=== PATIENT | female | born 1970 | race Caucasian/White ===

== ENCOUNTER → 2016-12-18 | Outpatient (CLI) | payer OTHER ==
[2016-12-18 18:36] LABS: FREE T4 1.07 NG/DL (0.76-1.46)
== END ==
LOC: M WUC 14:53
PROVIDERS: ATTEND Physician Assistant
DX: E89.0 Postprocedural hypothyroidism (principal)

== ENCOUNTER → 2017-01-28 | Outpatient (REF) | payer OTHER ==
[2017-01-31 00:06] LABS: ENDOMYSIAL ABY IgA Negative (Negative)
== END ==
LOC: M LAB REF 17:37
PROVIDERS: ATTEND Nurse Practitioner Family
DX: K90.0 Celiac disease (principal)

== ENCOUNTER → 2018-04-03 | Outpatient (CLI) | payer BC ==
[2018-04-03 16:22] LABS: THYROID STIMULATING HORMONE 0.103 uIU/ML (0.358-3.740)
[2018-04-03 16:22] LABS: FREE T4 1.13 NG/DL (0.76-1.46)
== END ==
LOC: M WUC 13:38
DX: E03.9 Hypothyroidism, unspecified (principal)
CPT/HCPCS: 84443

== ENCOUNTER → 2018-05-06 | Outpatient (REF) | payer BC ==
[2018-05-06 18:14] LABS: FERRITIN 2 NG/ML (8-252); IRON (FE) 18 UG/DL (50-170); PERCENT SATURATION 3.6 % (13.2-45.0); TOTAL IRON BINDING CAPACITY 507 UG/DL (250-450)
[2018-05-06 18:16] LABS: FOLATE > 24.0 NG/ML
== END ==
LOC: M LAB REF 16:32
DX: D64.9 Anemia, unspecified (principal)

== ENCOUNTER → 2018-05-08 | Outpatient (REF) | payer BC ==
[2018-05-08 17:08] LABS: RETICULOCYTE # 68.2 10^9/L (17-77); RETICULOCYTE % 1.6 % (0.5-1.5)
[2018-05-08 17:14] LABS: REASON FOR REVIEW OTHER; SLIDE REVIEW Report; SOURCE PERIPHERAL SMEAR
[2018-05-10 08:06] LABS: HAPTOGLOBIN 122 mg/dL (34-200)
== END ==
LOC: M LAB REF 16:41
DX: D64.9 Anemia, unspecified (principal)

== ENCOUNTER → 2018-07-07 | Outpatient (REF) | payer BC ==
[2018-07-07 17:14] LABS: PERCENT SATURATION 4.8 % (13.2-45.0)
== END ==
LOC: M LAB REF 16:35
PROVIDERS: ATTEND Nurse Practitioner Family
DX: D64.9 Anemia, unspecified (principal)

== ENCOUNTER 2018-08-11 09:38 | Day surgery (SDC) | payer BC ==
[~2018-08-11] VITALS: Ht 170.2 cm; Wt 86.6 kg
[~2018-08-11 09:38] MED LIST: CALC500T49 PO; CITA20TA4 PO; IRON325T7 PO; LEVO150T7 PO; MULT1TAB10 PO; VITA100067 PO
[2018-08-11] MEDS ORDERED: NS 1,000 ML IV ONE (10:00)
[2018-08-11] MEDS ORDERED: LIDOCAINE 2% INJ 100 MG/5 ML SDV (FOR ANES.) As Ordered ONE (11:38)
[2018-08-11] MEDS ORDERED: PROPOFOL 200 MG/20 ML VIAL As Ordered ONE (11:38)
--- NOTE | 2018-08-11 12:13 | ROOR ---
Patient Name: Sharon Merrill Procedure Date: 08/11/2018 11:26 AM Date of : 1970 Age: 47 Room: [facility] Gender: Female Note Status: Finalized Procedure: Upper GI endoscopy Indications: Iron deficiency anemia Providers: Anibal Choudhary MD Referring MD: MAGDA BAKER NP Requesting Provider: Medicines: Monitored Anesthesia Care Complications: No immediate complications. Procedure: Pre-Anesthesia Assessment: - Prior to the procedure, a History and Physical was performed, and patient medications and allergies were reviewed. The patient is competent. The risks and benefits of the procedure and the sedation options and risks were discussed with the patient. All questions were answered and informed consent was obtained. Patient identification and proposed procedure were verified by the physician, the nurse and the anesthesiologist in the procedure room. Mental Status Examination: alert and oriented. Airway Examination: normal oropharyngeal airway and neck mobility. Respiratory Examination: clear to auscultation. CV Examination: normal. Prophylactic Antibiotics: The patient does not require prophylactic antibiotics. Prior Anticoagulants: The patient has taken no previous anticoagulant or antiplatelet agents. ASA Grade Assessment: II - A patient with mild systemic disease. After reviewing the risks and benefits, the patient was deemed in satisfactory condition to undergo the procedure. The anesthesia plan was to use monitored anesthesia care (MAC). Immediately prior to administration of medications, the patient was re-assessed for adequacy to receive sedatives. The heart rate, respiratory rate, oxygen saturations, blood pressure, adequacy of pulmonary ventilation, and response to care were monitored throughout the procedure. The physical status of the patient was re-assessed after the procedure. The Endoscope was introduced through the mouth, and advanced to the second part of duodenum. The upper GI endoscopy was accomplished without difficulty. The patient tolerated the procedure well. Findings: The examined esophagus was normal. The Z-line was regular and was found 40 cm from the incisors. 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 This was characterized by ulceration and an intact staple line. Biopsies were taken with a cold forceps for histology. Verification of patient identification for the specimen was done by the physician and nurse using the patient's name, date and medical record number. Estimated blood loss was minimal. Normal mucosa was found in the gastric fundus and in the gastric body. Biopsies were taken with a cold forceps for Helicobacter pylori testing. Normal mucosa was found in the jejunum. Biopsies for histology were taken with a cold forceps for evaluation of celiac disease. Impression: - Normal esophagus. - Z-line regular, 40 cm from the incisors. 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 Biopsied. - Normal mucosa was found in the gastric fundus and in the gastric body. Biopsied. - Normal mucosa was found in the jejunum. Biopsied. Recommendation: - Patient has a contact number available for emergencies. The signs and symptoms of potential delayed complications were discussed with the patient. Return to normal activities tomorrow. Written discharge instructions were provided to the patient. - Resume previous diet. - Use Protonix (pantoprazole) 40 mg PO twice daily - to be taken in morning (1/2 hour before breakfast) and at bedtime ( atleast 3 hours after last meal) for 3 months. - Recommend an iron supplement. - Check hemoglobin and hematocrit in 3 months. - Based on the biopsy results you will receive a phone call from GI clinic in 2-3 weeks to review the pathology results AND/OR your results will be faxed to your Primary care physician. - Return to primary care physician. Anibal Choudhary MD Anibal Choudahry MD 08/11/2018 12:13:12 PM This report has been signed electronically. Number of Addenda: 0 Note Initiated On: 08/11/2018 11:26 AM Estimated Blood Loss: Estimated blood loss was minimal.
--- NOTE | 2018-08-11 12:17 | ROOR ---
Patient Name: Sharon Merrill Procedure Date: 08/11/2018 11:26 AM Date of : 1970 Age: 47 Room: [facility] Gender: Female Note Status: Finalized Procedure: Colonoscopy Indications: Iron deficiency anemia Providers: Anibal Choudhary MD Referring MD: MAGDA BAKER NP Requesting Provider: Medicines: Monitored Anesthesia Care Complications: No immediate complications. Procedure: Pre-Anesthesia Assessment: - Prior to the procedure, a History and Physical was performed, and patient medications and allergies were reviewed. The patient is competent. The risks and benefits of the procedure and the sedation options and risks were discussed with the patient. All questions were answered and informed consent was obtained. Patient identification and proposed procedure were verified by the physician, the nurse and the anesthesiologist in the procedure room. Mental Status Examination: alert and oriented. Airway Examination: normal oropharyngeal airway and neck mobility. Respiratory Examination: clear to auscultation. CV Examination: normal. Prophylactic Antibiotics: The patient does not require prophylactic antibiotics. Prior Anticoagulants: The patient has taken no previous anticoagulant or antiplatelet agents. ASA Grade Assessment: II - A patient with mild systemic disease. After reviewing the risks and benefits, the patient was deemed in satisfactory condition to undergo the procedure. The anesthesia plan was to use monitored anesthesia care (MAC). Immediately prior to administration of medications, the patient was re-assessed for adequacy to receive sedatives. The heart rate, respiratory rate, oxygen saturations, blood pressure, adequacy of pulmonary ventilation, and response to care were monitored throughout the procedure. The physical status of the patient was re-assessed after the procedure. The Colonoscope was introduced through the anus and advanced to the terminal ileum, with identification of the appendiceal orifice and IC valve. The colonoscopy was performed without difficulty. The patient tolerated the procedure well. The quality of the bowel preparation was good. The terminal ileum and the ileocecal valve were photographed. Scope insertion time was 4 minutes. Scope withdrawal time was 8 minutes. The total duration of the procedure was 12 minutes. Findings: The perianal and digital rectal examinations were normal. The terminal ileum appeared normal. Non-bleeding external and internal hemorrhoids were found during retroflexion. The hemorrhoids were small. No other significant abnormalities were identified in a careful examination of the remainder of the colon. Impression: - The examined portion of the ileum was normal. - Non-bleeding external and internal hemorrhoids. - No specimens collected. Recommendation: - Patient has a contact number available for emergencies. The signs and symptoms of potential delayed complications were discussed with the patient. Return to normal activities tomorrow. Written discharge instructions were provided to the patient. - Resume previous diet. - Continue present medications. - Await pathology results. - Repeat colonoscopy in 10 years for screening purposes. - Return to GI clinic in 10 years. - Return to primary care physician. Anibal Choudhary MD Anibal Choudhary MD 08/11/2018 12:17:06 PM This report has been signed electronically. Number of Addenda: 0 Note Initiated On: 08/11/2018 11:26 AM Estimated Blood Loss: Estimated blood loss was minimal.
[2018-08-11 12:27] VITALS: BP 131/82
== END 2018-08-11 13:00 | disposition home or self-care (01) ==
LOC: M OPP 09:38
PROVIDERS: ATTEND Internal Medicine Gastroenterology
DX: D50.9 Iron deficiency anemia, unspecified (principal); K64.8 Other hemorrhoids; Z98.84 Bariatric surgery status; E07.9 Disorder of thyroid, unspecified; I10 Essential (primary) hypertension; Z88.2 Allergy status to sulfonamides; Z79.899 Other long term (current) drug therapy

== ENCOUNTER → 2020-05-07 | Outpatient (CLI) | payer SELFPAY ==
[~2020-05-07] MED LIST changes: -CITA20TA4 PO; +CITA20TA6 PO; +FERR325T82 PO; -IRON325T7 PO
== END ==
LOC: M LABSMTC 10:58
PROVIDERS: ATTEND Pediatrics
DX: Z20.828 Contact with and (suspected) exposure to other viral communicable diseases (principal)

== ENCOUNTER → 2020-06-20 | Outpatient (REF) | payer BC ==
[2020-06-20 18:51] LABS: FREE T4 0.91 NG/DL (0.76-1.46); THYROID STIMULATING HORMONE 7.54 uIU/ML (0.358-3.740)
== END ==
LOC: M LABDRAWC 15:54
PROVIDERS: ATTEND Internal Medicine
DX: E89.0 Postprocedural hypothyroidism (principal)

== ENCOUNTER → 2020-07-14 | Outpatient (CLI) | payer SELFPAY | LOC: M LABSMTC 09:42 | PROVIDERS: ATTEND Pediatrics | DX: Z20.828 Contact with and (suspected) exposure to other viral communicable diseases (principal) ==

== ENCOUNTER → 2020-09-21 | Outpatient (REF) | payer BC ==
[2020-09-21 17:02] LABS: PERCENT SATURATION 36.7 % (13.2-45.0)
== END ==
LOC: M LAB REF 16:21
PROVIDERS: ATTEND Nurse Practitioner Adult Health
DX: Z98.84 Bariatric surgery status (principal)

== ENCOUNTER → 2020-09-24 | Outpatient (CLI) | payer BC | LOC: M LABSMTC 09:28 | PROVIDERS: ATTEND Ophthalmology | DX: Z11.59 Encounter for screening for other viral diseases (principal) ==

== ENCOUNTER → 2022-05-18 | Outpatient (REF) | payer BC ==
[2022-05-18 19:16] LABS: PERCENT SATURATION 45.3 % (13.2-45.0)
[2022-05-18 19:41] LABS: THYROGLOBULIN ANTIBODY 64.4 U/ML (<60.0); TOTAL 25(OH) VITAMIN D 28.1 NG/ML (30.0-100.0); TOTAL T3 55.9 NG/DL (60.0-181.0)
== END ==
LOC: M LAB REF 16:12
PROVIDERS: ATTEND Nurse Practitioner Adult Health
DX: E03.9 Hypothyroidism, unspecified (principal); Z98.84 Bariatric surgery status

== ENCOUNTER → 2022-05-23 | Outpatient (CLI) | payer BC | LOC: M WHC 06:53 | PROVIDERS: ATTEND Nurse Practitioner Adult Health | DX: Z12.31 Encounter for screening mammogram for malignant neoplasm of breast (principal) ==

== ENCOUNTER → 2022-11-16 | Outpatient (REF) | payer BC ==
[2022-11-16 17:24] LABS: IRON (FE) 109 UG/DL (50-170)
[2022-11-16 17:27] LABS: VITAMIN B12 LEVEL 326 PG/ML (211-911)
== END ==
LOC: M LAB REF 16:14
PROVIDERS: ATTEND Nurse Practitioner Adult Health
DX: D50.9 Iron deficiency anemia, unspecified (principal); D51.9 Vitamin B12 deficiency anemia, unspecified

== ENCOUNTER → 2023-02-04 | Outpatient (REF) | payer BC ==
[2023-02-04 17:33] LABS: APPEARANCE, URINE CLEAR (CLEAR); BACTERIA, URINE AUTO NEGATIVE (NEGATIVE); BILIRUBIN, URINE AUTO NEGATIVE (NEGATIVE); BLOOD, URINE BLOOD 1+ (NEGATIVE); COLOR, URINE STRAW (YELLOW); GLUCOSE, URINE (UA) AUTO NEGATIVE (NEGATIVE); KETONE, URINE AUTO NEGATIVE (NEGATIVE); LEUKOCYTE ESTERASE, URINE AUTO 1+ (NEGATIVE); MUCUS, URINE SMALL (NEGATIVE); NITRITE, URINE AUTO NEGATIVE (NEGATIVE); PROTEIN, URINE AUTO NEGATIVE (NEGATIVE); RBC, URINE AUTO 0 /HPF (0-3); SPECIFIC GRAVITY URINE AUTO 1.003 (1.002-1.035); SQUAMOUS EPITHELIAL CELL UR AU 0 /HPF (0-6); UROBILINOGEN, URINE AUTO 0.2 mg/dL (0.0-2.0); WBC, URINE AUTO 14 /HPF (0-3)
== END ==
LOC: M LAB REF 16:34
PROVIDERS: ATTEND Physician Assistant
DX: N39.0 Urinary tract infection, site not specified (principal)

== ENCOUNTER → 2024-03-31 | Outpatient (CLI) | payer BC | LOC: M WHC 08:33 | PROVIDERS: ATTEND Nurse Practitioner Family | DX: Z12.31 Encounter for screening mammogram for malignant neoplasm of breast (principal) ==

== ENCOUNTER → 2024-04-03 | Outpatient (REF) | payer BC | LOC: M LAB REF 12:30 | PROVIDERS: ATTEND Internal Medicine | DX: D51.9 Vitamin B12 deficiency anemia, unspecified (principal) ==

== ENCOUNTER 2024-11-17 21:41 | Emergency (ER) | payer BC ==
[~2024-11-17] VITALS: Ht 170.2 cm; Wt 84.1 kg
[2024-11-17 21:47] VITALS: BP 138/86; TEMP 96.8; O2SAT 98
== END 2024-11-17 23:40 | disposition left against medical advice (07) ==
LOC: M ED 21:41 → EDBD 21:41 → M ED 23:40
DX: Z53.21 Procedure and treatment not carried out due to patient leaving prior to being seen by health care provider (principal)

== ENCOUNTER → 2025-04-05 | Outpatient (CLI) | payer BC | LOC: M WHC 15:22 | PROVIDERS: ATTEND Nurse Practitioner Family | DX: Z12.31 Encounter for screening mammogram for malignant neoplasm of breast (principal); R92.313 Mammographic fatty tissue density, bilateral breasts ==